=== PATIENT | female | born 1960 | race Caucasian/White ===

== ENCOUNTER → 2017-02-06 | Outpatient (CLI) | payer OTHER ==
[2017-02-06 17:50] LABS: THYROID STIMULATING HORMONE 3.71 uIU/ml (0.34-5.60)
[2017-02-06 17:57] LABS: FREE THYROXIN (T4) 0.95 ng/dL (0.58-1.64)
[2017-02-06 18:05] LABS: FOLATE (FOLIC ACID) 12.4 ng/mL (>5.8)
[2017-02-13 22:05] LABS: ANA SCREEN Negative (Negative); DHEA SULFATE 57 mcg/dL (8-188); TESTOSTERONE FREE (PNL) 2.1 pg/mL (0.1-6.4); TESTOSTERONE TOTAL(PNL) 28 ng/dL (2-45)
== END | disposition home or self-care (01) ==
LOC: CLAB 16:33
PROVIDERS: Specialist
DX: L65.9 Nonscarring hair loss, unspecified (principal); D48.5 Neoplasm of uncertain behavior of skin; L57.0 Actinic keratosis
CPT/HCPCS: 36415; 82306; 82607; 82626; 82652; 82728; 82746; 84402; 84403; 84439; 84443; 84630; 86038; 86039